=== PATIENT | male | born 1990 | race Caucasian/White ===

== ENCOUNTER 2023-11-20 13:55 | Outpatient (AMB) | payer OTHER, SELFPAY ==
--- NOTE | 2023-11-20 14:15 | A.OFFPC_ITS ---
Vital Signs 11/20/23 14:19 Height 5 ft 3.19 in Weight 170 lb BMI 29.9 BP 104/70 Blood Pressure Location Lt brachial Position Sitting Respiration 12 Pulse Source Pulse Oximeter Temp 98 F Temp Source Oral Pulse Oximetry (%) 97 Oxygen Delivery Method Room Air Intake Visit Reasons: npv Intake Note: New patient visit [employer] Required: No Allergies No Known Allergies Allergy (Verified 11/20/23 14:16) Medication List - Last Reconciled 11/22/23 by Graciela Box MD No Known Home Meds Tobacco use date assessed: 11/20/23 Dental Screening Dental Screen Date: 11/20/23 Did you have a dental visit in the last 12 months?: Yes Did you have a dental problem in the last 6 months where you did not have access to dental care?: No Was dental information given to patient?: Patient has dentist HPI HPI Comments History of Present Illness Details The patient is a 33-year-old male history seasonal/environmental al lergies presenting to [facility] Referral to Allergy and immunology for worsening presumably seasonal allergies. He is taking [id number] medications without significant relief. The patient does endorse some fatigue and weight gain however he does have a young toddler at home. This was seen his 's 1st child. Denies malaise, fatigue, night sweats ROS see HPI PHYSICAL EXAM: GENERAL: Alert and oriented x 3. NAD EYES: EOMI. Anicteric. HENT: Moist mucous membranes. No scleral icterus. No cervical lymphadenopathy. LUNGS: Clear to auscultation bilaterally. CARDIOVASCULAR: Regular rate and rhythm. No murmur. No JVD. ABDOMEN: Soft, non-tender +bs EXTREMITIES: No edema. Non-tender. SKIN: No rashes or lesions. Warm. NEUROLOGIC: No focal neurological deficits. CN II-XII grossly intact PSYCHIATRIC: Cooperative. Appropriate mood and affect [facility] Medical History No pertinent past medical history Surgical History No pertinent past surgical history Family History Mother Cancer Asthma Father Cancer Other Gastric cancer Pancreatic cancer Social History Household Members: Spouse and Children Housing: House 75 years or older and lives alone: No Alcohol intake: current Alcohol intake frequency: a few times a month Patient Tobacco Use Status: Never used Tobacco e-Cigarette/Vaping Use: Never Used Second Hand Smoke Exposure: No service: No Current occupational status: employed Current occupation: [employer] Current occupational exposures/hazards: Yes (fork lift) Cognitive needs: No Hearing needs: No Vision needs: No Questionnaire PHQ-9 Over the last 2 weeks, how often have you been bothered by any of the following problems? 1. Little interest or pleasure in doing things: not at all 2. Feeling down, depressed, or hopeless: not at all 3. Trouble falling or staying asleep, or sleeping too much: not at all 4. Feeling tired or having little energy: several days 5. Poor appetite or overeating: not at all 6. Feeling bad about yourself - or that you are a failure or have let yourself or your family down: several days 7. Trouble concentrating on things, such as reading the newspaper or watching television: not at all 8. Moving or speaking so slowly that other people could have noticed. Or the opposite - being so fidgety or restless that you have been moving around a lot more than usual: not at all 9. Thoughts that you would be better off or of hurting yourself in some way: not at all Total score: 2 Depression Screening Interpretation: Negative (neg) Depression Screening Done: Yes 26507 - PHQ-9 Billing: Yes Source: Developed by Drs. Patrice Mayers, Kate Herzog, Jp Arteaga and colleagues, with an educational krishan from [employer]. Thrive Questionnaire Date Thrive assessed: 11/20/23 I am a: Patient What is your living situation today?: I have a steady place to live Within the past 12 months, did the food you bought not last and you didn't have the money to get more?: Never true Within the past 12 months, did you worry whether your food would run out before you got money to buy more?: Never true Do you have trouble paying for medicines?: No Do you have trouble getting transportation to medical appointments?: No Do you have trouble paying your heating and electricity bill?: No Do you have trouble taking care of your child, family member or friend?: No Do you have trouble with day-to-day activities such as bathing, preparing meals, shopping, managing finances, etc.?: No Are you currently unemployed and looking for a job?: No Are you interested in more education?: No Please select the resources that you would like help with: None Currently or been in a relationship where the following occur: No concerns reported THRIVE Score: 0 AUDIT C Alcohol Use Questionnaire (AUDIT-C) 1. How often do you have a drink containing alcohol?: Monthly or less 2. How many drinks containing alcohol do you have on a typical day when you are drinking?: 1 or 2 3. How often do you have six or more drinks on one occasion?: Never Total Score: 1 CHEIKH-7 AMB Questionnaire CHEIKH-7 Date CHEIKH - 7 assessed: 11/20/23 Feeling nervous, anxious, or on edge: 0 = Not at all Not being able to stop or control worryin = Not at all Worrying too much about different things: 0 = Not at all Trouble relaxin = Not at all Being so restless that it is hard to sit still: 0 = Not at all Becoming easily annoyed or irritable: 0 = Not at all Feeling afraid as if something awful might happen: 0 = Not at all Total CHEIKH-7 score (0-4 normal; 5-9 mild; 10-14 moderate; 15-21 severe): 0 Source: Developed by Drs. Patrice Mayers, Kate Herzog, Jp Arteaga and colleagues, with an educational krishan from [employer]. CHEIKH-7 Assessment Billing CHEIKH-7 Assessment Tool: CHEIKH-7 Assessment 52130 Physical exam (Primary Care) Vital Signs: Last Vital Signs Temp 98 F 11/20/23 14:19 Resp 12 11/20/23 14:19 BP 104/70 11/20/23 14:19 Pulse Ox 97 11/20/23 14:19 Oxygen Delivery Method Room Air 11/20/23 14:19 BMI result Body Mass Index 29.9 Tobacco/Smoking Status: Tobacco use Status Tobacco use date assessed 11/20/23 11/20/23 14:18 Patient Tobacco Use Status Never used Tobacco 11/20/23 14:18 e-Cigarette/Vaping Use Never Used 11/20/23 14:18 PHQ-9: PHQ-9 Score PHQ-9: Total score 2 11/22/23 15:00 Depression Screening Interpretation: Negative (neg) Thrive Assessment: Date of Thrive Assessment Date Thrive assessed 11/20/23 11/20/23 14:38 Currently or been in a relationship where the following occur: No concerns reported Assessment and Plan Assessment & Plan (1) Encounter to establish care: Code(s): Z76.89 - Persons encountering health services in other specified circumstances Plan: 33 y/o male presenting to establish care. Past medical, surgical, social & family history reviewed. chart updated. worsening allergies. referral placed (2) Fatigue: Code(s): R53.83 - Other fatigue Qualifiers: Fatigue type: unspecified Qualified Code(s): R53.83 - Other fatigue Plan: labs ordered Orders: Orders Vitamin B12 and Folate 11/20/23 R53.83 - Other fatigue, Z13.0 - Encounter for screening for diseases of the blood and blood-forming organs and certain disorders involving the immune mechanism, Z13.220 - Encounter for screening for lipoid disorders, Z13.228 - Encounter for screening for other metabolic disorders, Z76.89 - Persons encountering health services in other specified circumstances Complete Blood Count Auto Diff 11/20/23 R53.83 - Other fatigue, Z13.0 - Encounter for screening for diseases of the blood and blood-forming organs and certain disorders involving the immune mechanism, Z13.220 - Encounter for screening for lipoid disorders, Z13.228 - Encounter for screening for other metabolic disorders, Z76.89 - Persons encountering health services in other specified circumstances Comprehensive Met. Panel 11/20/23 R53.83 - Other fatigue, Z13.0 - Encounter for screening for diseases of the blood and blood-forming organs and certain disorders involving the immune mechanism, Z13.220 - Encounter for screening for lipoid disorders, Z13.228 - Encounter for screening for other metabolic disorders, Z76.89 - Persons encountering health services in other specified circumstances Lipid Panel 11/20/23 R53.83 - Other fatigue, Z13.0 - Encounter for screening for diseases of the blood and blood-forming organs and certain disorders involving the immune mechanism, Z13.220 - Encounter for screening for lipoid disorders, Z13.228 - Encounter for screening for other metabolic disorders, Z76.89 - Persons encountering health services in other specified circumstances Referrals Genetics Referral Z80.0 - Family history of malignant neoplasm of digestive organs Allergy & Immunology Referral Z91.09 - Other allergy status, other than to drugs and biological substances Coding Level of Care Code New Pt Level 3 (90783) Diagnoses Encounter to establish care Z76.89 Fatigue, unspecified type R53.83 Fatigue type: unspecified Additional Codes CHEIKH-7 Assessment Billing - CHEIKH-7 Assessment Tool: CHEIKH-7 Assessment 10283 ([id number])
[2023-11-20 14:19] VITALS: BP 104/70; RESP 12; TEMP 36.6; O2SAT 97; BMI 29.9
== END 2023-11-20 15:32 | disposition home or self-care (01) ==
PROVIDERS: PCP Internal Medicine; Visit Provider Internal Medicine
DX: R53.83 Other fatigue (principal); Z76.89 Persons encountering health services in other specified circumstances
CPT/HCPCS: 99203

== ENCOUNTER 2023-11-20 15:20 | Outpatient (REF) | payer OTHER, SELFPAY ==
[2023-11-20 17:37] LABS: MANUAL DIFF FLAG NO
[2023-11-20 17:46] LABS: Basophils Absolute Auto 0.1 X10*3/uL (0.0-0.2); Basophils Percent Auto 0.6 % (0-2); Eosinophils Absolute Auto 0.2 X10*3/uL (0.0-0.4); Eosinophils Percent Auto 2.1 % (0-4); Hematocrit 42.5 % (42.0-52.0); Hemoglobin 14.8 g/dl (14.0-18.0); Imm Gran Abs Auto 0.04 X10*3/uL (0.00-0.03); Imm Gran Pct Auto 0.5 % (0.0-0.4); Lymphocytes Absolute Auto 2.3 X10*3/uL (1.2-4.9); Lymphocytes Percent Auto 26.6 % (20-40); Mean Corpuscular HGB Conc 34.8 g/dl (31.0-36.0); Mean Corpuscular Hemoglobin 30.3 pg (27.0-33.0); Mean Corpuscular Volume 86.9 fL (80.0-98.0); Mean Platelet Volume 10.7 fL (9.4-12.4); Monocytes Absolute Auto 0.6 X10*3/uL (0.1-1.2); Monocytes Percent Auto 7.2 % (2-11); Neutrophils Absolute Auto 5.4 x10*3/uL (2.0-8.3); Platelet Count 249 X10*3/uL (160-400); Red Blood Count 4.89 X10*6/uL (4.60-5.80); Red Cell Distribution Width 11.8 % (11.0-16.0); White Blood Count 8.6 X10*3/uL (4.8-10.8)
[2023-11-20 18:06] LABS: Alanine Aminotransferase 27 U/L (0-40); Albumin Level 4.5 g/dL (3.5-5.0); Alkaline Phosphatase 125 U/L (39-117); Anion Gap 13 (12-20); Aspartate Amino Transferase 20 U/L (5-37); Bilirubin Total 0.8 mg/dL (0.0-1.0); Blood Urea Nitrogen 19 mg/dL (9-16); Calcium 9.6 mg/dL (8.4-10.2); Carbon Dioxide 27 mmol/L (22-29); Chloride 105 mmol/L (96-108); Cholesterol 175 mg/dL (<200); Estimated Glomerular Filt Rate > 60; Glucose Random 84 mg/dL (60-115); HDL Cholesterol 43 mg/dL (>40); LDL Cholesterol Calculated 115 mg/dL (<100); Potassium 3.8 mmol/L (3.3-5.1); Sodium 141 mmol/L (135-145); Total Protein 7.5 g/dL (6.5-8.0); Triglycerides 86 mg/dL (<150)
[2023-11-20 18:30] LABS: Folate 12.4 ng/mL (> or = 4.0); Vitamin B12 503 pg/mL (200-900)
== END 2023-11-20 15:21 | disposition home or self-care (01) ==
LOC: HO.WFDLDS 15:20
PROVIDERS: Visit Provider Internal Medicine
DX: R53.83 Other fatigue (principal); Z76.89 Persons encountering health services in other specified circumstances; Z13.0 Encounter for screening for diseases of the blood and blood-forming organs and certain disorders involving the immune mechanism; Z13.220 Encounter for screening for lipoid disorders; Z13.228 Encounter for screening for other metabolic disorders
CPT/HCPCS: 36415; 80053; 80061; 82607; 82746; 85025